=== PATIENT | female | born 1980 | race Caucasian/White ===

== ENCOUNTER 2024-08-07 20:00 | Emergency (ER) | payer MEDICAID ==
[~2024-08-07] VITALS: Ht 165.1 cm; Wt 56.7 kg
[2024-08-07] MEDS ORDERED: ONDANSETRON ODT 4 MG TAB.RAPDIS ONE (20:33)
[2024-08-07] MEDS: ONDANSETRON ODT 4 MG TAB.RAPDIS SL ONE (20:35)
[2024-08-07] MEDS ORDERED: HYDR-4209 PO (21:28)
[2024-08-07] MEDS ORDERED: ONDA4TAB11 PO (21:28)
[2024-08-07 22:58] VITALS: BP 142/84; TEMP 97.7; O2SAT 99
== END 2024-08-07 22:59 | disposition home or self-care (01) ==
LOC: ER 21:15
DX: S00.83XA Contusion of other part of head, initial encounter (principal); R51.9 Headache, unspecified; F17.210 Nicotine dependence, cigarettes, uncomplicated; F17.290 Nicotine dependence, other tobacco product, uncomplicated; W22.8XXA Striking against or struck by other objects, initial encounter; Y93.89 Activity, other specified; Y92.89 Other specified places as the place of occurrence of the external cause; Y99.8 Other external cause status
CPT/HCPCS: 70450; 70486; A4606; A4663; Q0162